=== PATIENT | male | born 1935 | race Native Hawaiian/Other Pacific Islander ===

== ENCOUNTER 2017-02-07 07:00 | Day surgery (SDC) | payer OTHER ==
[~2017-02-07 07:00] MED LIST: LIDOCAINE 1% MPF 5 ML VIAL ONE
[2017-02-07] MEDS ORDERED: TROP 1%/CYCLOPEN 1%/PHENYL 2% DROPS ONE (11:32)
[2017-02-07] MEDS ORDERED: TOBRAMYCIN-DEXAMETH OPHTH SOL 1 DROP RIGHT_EYE ONE (12:27)
[2017-02-07] MEDS: PROPARACAINE 0.5% OPHTH SOL 15 ML BTTL ONE ×2 (12:27→13:32)
[2017-02-07 12:38] VITALS: TEMP 98.5
[2017-02-07] MEDS ORDERED: MIDAZOLAM INJ 2 MG/2 ML VIAL ONE (13:23)
[2017-02-07] MEDS ORDERED: DEXAMETHASONE 0.1% OPHTH SOL 1 DROP RIGHT_EYE ONE ×2 (13:42→13:47)
[2017-02-07] MEDS ORDERED: TOBRAMYCIN SULF 0.3 % OPHT SOL 1 DROP RIGHT_EYE ONE ×2 (13:42→13:47)
[2017-02-07] MEDS ORDERED: BRIMONIDINE 0.2% OPHTH DROPS RIGHT_EYE ONE ×2 (13:43→13:47)
[2017-02-07 14:03] VITALS: BP 160/60; O2SAT 99
== END 2017-02-07 14:32 | disposition home or self-care (01) ==
LOC: AMB 07:00
PROVIDERS: ATTEND Ophthalmology
DX: H25.11 Age-related nuclear cataract, right eye (principal)
CPT/HCPCS: 36416; 66984; 82948; J2250

== ENCOUNTER 2017-02-17 12:45 | Day surgery (SDC) | payer OTHER ==
[2017-02-17] MEDS ORDERED: PROPARACAINE 0.5% OPHTH SOL 15 ML BTTL LEFT_EYE ONE ×3 (13:05→14:45)
[2017-02-17] MEDS ORDERED: TOBRAMYCIN SULF 0.3 % OPHT SOL 1 DROP LEFT_EYE ONE ×5 (13:05→14:53)
[2017-02-17] MEDS ORDERED: TROP 1%/CYCLOPEN 1%/PHENYL 2% DROPS OPHTH ONE (13:05)
[2017-02-17] MEDS ORDERED: MIDAZOLAM INJ 2 MG/2 ML VIAL ONE (13:10)
[2017-02-17] MEDS ORDERED: LIDOCAINE 1% PF 2 ML AMP INJ ONE (14:45)
[2017-02-17] MEDS ORDERED: DEXAMETHASONE 0.1% OPHTH SOL 1 DROP LEFT_EYE ONE ×4 (14:45→14:53)
[2017-02-17] MEDS ORDERED: BRIMONIDINE 0.2% OPHTH DROPS LEFT_EYE ONE ×4 (14:46→14:53)
[2017-02-17 15:16] VITALS: BP 162/75; TEMP 98.3; O2SAT 98
== END 2017-02-17 16:10 | disposition home or self-care (01) ==
LOC: AMB 12:45
PROVIDERS: ATTEND Ophthalmology
DX: H25.12 Age-related nuclear cataract, left eye (principal); I10 Essential (primary) hypertension; E11.36 Type 2 diabetes mellitus with diabetic cataract; K21.9 Gastro-esophageal reflux disease without esophagitis; I25.2 Old myocardial infarction; Z87.891 Personal history of nicotine dependence; Z79.84 Long term (current) use of oral hypoglycemic drugs; Z79.82 Long term (current) use of aspirin; Z79.899 Other long term (current) drug therapy
CPT/HCPCS: 66984; J2250